=== PATIENT | male | born 1935 | race Caucasian/White ===

== ENCOUNTER 2018-11-11 19:50 | Emergency (ER) | payer MEDICARE, MEDICAID ==
[2018-11-11 20:46] VITALS: BP 156/78
--- NOTE | 2018-11-11 21:17 | UC ---
UC General HPI - HPI Summary HPI Summary: pt is c/o pain in his low back x 2 days. he denies hx of injury. he has no fever, abdominal pain, numb/weak extremities or saddle anesthesia. he has no bowel or bladder dysfunction. his female rn lactation consultant notes some swelling. - History of Current Complaint Chief Complaint: UCBackPain Stated Complaint: BACK PAIN Time Seen by Provider: 11/11/18 21:02 Hx Obtained From: Patient Timing: Constant Pain Intensity: 7 Aggravating: movement - Allergy/Home Medications Allergies/Adverse Reactions: Allergies Allergy/AdvReac Type Severity Reaction Status Date / Time No Known Allergies Allergy Verified 11/11/18 20:46 Home Medications: Home Medications Albuterol HFA INHALER* [Ventolin HFA Inhaler*] 1 - 2 puff INH Q6H PRN 11/11/18 [ History Confirmed 11/11/18] Allopurinol TAB* [Zyloprim 100 MG TAB*] 100 mg PO DAILY 11/11/18 [History Confirmed 11/11/18] Artificial Tears* 15 ML BTL [Polyvinyl Alcohol 1.4% OPTH*] 1 drop BOTH EYES TID PRN 11/11/18 [History Confirmed 11/11/18] Aspirin EC TAB* [Ecotrin EC Low Dose 81 MG*] 81 mg PO DAILY 11/11/18 [History Confirmed 11/11/18] Benzonatate CAP* [Tessalon 100 MG CAP*] 200 mg PO TID PRN 11/11/18 [History Confirmed 11/11/18] Bisacodyl SUPP* [Dulcolax Supp*] 10 mg [place] DAILY PRN 11/11/18 [History Confirmed 11/11/18] Metoprolol Succinate XL TAB* [Toprol XL TAB*] 25 mg PO BEDTIME 11/11/18 [ History Confirmed 11/11/18] Polyethylene Glycol 3350* [Miralax*] 17 gm PO DAILY 11/11/18 [History Confirmed 11/11/18] Rosuvastatin Calcium 40 mg PO BEDTIME 11/11/18 [History Confirmed 11/11/18] Sennosides/Docusate Sodium [Senna-S Tablet] 1 each PO BEDTIME PRN 11/11/18 [ History Confirmed 11/11/18] Tamsulosin CAP* [Flomax CAP*] 0.4 mg PO DAILY 11/11/18 [History Confirmed ] amLODIPine TAB* [Norvasc 5 mg TAB*] 5 mg PO DAILY 11/11/18 [History Confirmed ] PMH/Surg Hx/FS Hx/Imm Hx - Additional Past Medical History Additional PMH: Mild MR, BPH, gout, renal disease Endocrine History: Dyslipidemia Cardiovascular History: Cardiac Disease, Hypertension - Surgical History Surgical History: Yes Surgery Procedure, Year, and Place: cardiac stents. prostate surgery. right arm/injury. cataracts - Family History Known Family History: Positive: Non-Contributory - Social History Occupation: Employed Part-time Alcohol Use: Rare Substance Use Type: None Smoking Status (MU): Never Smoked Tobacco Review of Systems All Other Systems Reviewed And Are Negative: No Constitutional: Negative: Fever, Chills Skin: Negative: Rash Gastrointestinal: Negative: Abdominal Pain Musculoskeletal: Negative: Decreased ROM Neurological: Negative: Weakness, Paresthesia, Numbness Physical Exam Triage Information Reviewed: Yes Appearance: Well-Appearing Vital Signs: Initial Vital Signs Temp 98.2 F 11/11/18 20:37 Pulse 57 11/11/18 20:37 Resp 18 11/11/18 20:37 BP 156/78 11/11/18 20:37 Pulse Ox 98 11/11/18 20:37 Vital Signs Reviewed: Yes Eyes: Positive: Conjunctiva Clear Neck: Positive: Supple, Nontender, No Lymphadenopathy, Other: - c-spine is non tender Respiratory: Positive: Lungs clear, Normal breath sounds Cardiovascular: Positive: RRR, No Murmur Abdomen Description: Positive: Nontender, No Organomegaly, Soft. Negative: Distended, Guarding, Pulsatile Mass Bowel Sounds: Positive: Present Musculoskeletal: Positive: No Edema, Other: - Back: no rash. loss of lordosis. tender over lumbar spine and paraspinal mm's. rest of back non tender. ROM intac throughout. 5/5 strenght, 2+ reflexes and sensation inatc x4. no saddle anesthesia. steady gait. Neurological: Positive: Alert Skin Exam: Normal Skin: Negative: Rashes Course/Dx - Differential Dx - Multi-Symptom Differential Diagnoses: Other - NO CONCERN FOR INFECTION, ACUTE ABDOMEN, CAUDA EQUINA AND NO FX ON XRAY. DEG CHANGES ON XRAY. D/W DR BENTON WHO SUGGEST I TX WITH ROBAXIN 500MG TID PRN. - Diagnoses Provider Diagnosis: Low back pain Discharge ED - Sign-Out/Discharge Documenting (check all that apply): Patient Departure All imaging exams completed and their final reports reviewed: No - Discharge Plan Condition: Stable Disposition: HOME Prescriptions: Methocarbamol TAB* [Robaxin 500 MG TAB*] 500 mg PO TID PRN #12 tab PRN Reason: back pain Patient Education Materials: Acute Low Back Pain (ED) Referrals: Regan Avila PA [Primary Care Provider] - 5 Days - Billing Disposition and Condition Condition: STABLE Disposition: Home
--- NOTE | 2018-11-12 11:47 | ED ---
Progress - Progress Note Progress Note: final xray read reviewed: Course/Dx - Diagnoses Provider Diagnoses: Low back pain Discharge ED - Sign-Out/Discharge Documenting (check all that apply): Patient Departure All imaging exams completed and their final reports reviewed: Yes - Discharge Plan Condition: Stable Disposition: HOME Prescriptions: Methocarbamol TAB* [Robaxin 500 MG TAB*] 500 mg PO TID PRN #12 tab PRN Reason: back pain Patient Education Materials: Acute Low Back Pain (ED) Referrals: Regan Avila PA [Primary Care Provider] - 5 Days - Billing Disposition and Condition Condition: STABLE Disposition: Home
== END 2018-11-11 22:15 | disposition home or self-care (01) ==
LOC: UCCORT 19:50
DX: M54.5 Low back pain (principal); M51.37 Other intervertebral disc degeneration, lumbosacral region; M47.817 Spondylosis without myelopathy or radiculopathy, lumbosacral region; I10 Essential (primary) hypertension; E78.5 Hyperlipidemia, unspecified; N40.0 Benign prostatic hyperplasia without lower urinary tract symptoms; Z79.82 Long term (current) use of aspirin; Z95.5 Presence of coronary angioplasty implant and graft
CPT/HCPCS: 72110; 99202; G0463